=== PATIENT | female | born 1960 | race Caucasian/White ===

== ENCOUNTER 2018-05-08 00:25 | Outpatient (CLI) | payer BC, SELFPAY ==
--- NOTE | 2018-05-08 07:40 | DI.MAMMO_ITS ---
SYMPTOM/DIAGNOSIS: SCREENING, Z12.31 MAMMOGRAMS: Mammograms were interpreted according to the usual protocol including computer analysis with CAD system, tomosynthesis and C view imaging. Comparison with prior examinations. Breast density D. No masses or microcalcifications are seen. There is nothing to suggest malignancy. IMPRESSION: Negative mammogram. Routine screening is recommended. Category I. MQSA ASSESSMENT OF FINDINGS: Negative. Category 1. Patient will receive a letter notifying them of these results. BI-RADS category D. The breasts are extremely dense, which lowers the sensitivity of mammography.
== END 2018-05-08 00:45 ==
PROVIDERS: PCP Physician Assistant; Visit Provider Obstetrics & Gynecology
DX: Z12.31 Encounter for screening mammogram for malignant neoplasm of breast (principal)
CPT/HCPCS: 77063; 77067

== ENCOUNTER 2019-06-10 02:02 | Outpatient (CLI) | payer BC, SELFPAY ==
--- NOTE | 2019-06-10 08:40 | DI.MAMMO_ITS ---
EXAM: MAMMO SCREENING CLINICAL HISTORY: SCREENING, Z12.31 TECHNIQUE: Mammograms were interpreted according to the usual protocol including computer analysis w [employer] CAD system, tomosynthesis and C-view imaging. FINDINGS: The breasts are very dense with fairly symmetrical distribution of fibroglandular tissue. No dominan t mass or clumped microcalcification identified in either breast. Current examination is compared wi th previous examinations including May 2018 and there has been no gross interval change in appear ance in comparison with the previous studies. IMPRESSION: Routine screening examinations are suggested at yearly intervals due to the family history of breast carcinoma. Category 1. Breast density, category D. BI-RADS Cat 1 - Negative. Breast Density - Category D - Extremely dense.
== END 2019-06-10 02:22 ==
PROVIDERS: PCP Physician Assistant; Visit Provider Obstetrics & Gynecology
DX: Z12.31 Encounter for screening mammogram for malignant neoplasm of breast (principal); Z80.3 Family history of malignant neoplasm of breast
CPT/HCPCS: 77063; 77067

== ENCOUNTER 2020-06-13 00:34 | Outpatient (CLI) | payer BC, SELFPAY ==
--- NOTE | 2020-06-13 | DI.MAMMO_ITS ---
EXAM: MAMMO SCREENING CLINICAL HISTORY: SCREENING,Z12.39 TECHNIQUE: Mammograms were interpreted according to the usual protocol including computer analysis w [employer] CAD system, tomosynthesis and C-view imaging. COMPARISON: FINDINGS: The breasts are of very high density. No dominant mass or clumped microcalcification is identified i n either breast. The current examination is compared with previous examinations including June 06 and there has been no gross interval change in appearance in comparison with the prior studies. IMPRESSION: No specific evidence of malignancy at this time. Routine screening examinations are suggested at yea rly intervals in this age group according to the ACS ACR guidelines. BI-RADS Category 1 - Negative Breast Density - Category D - Extremely dense
== END 2020-06-13 00:54 ==
PROVIDERS: PCP Physician Assistant; Visit Provider Obstetrics & Gynecology
DX: Z12.31 Encounter for screening mammogram for malignant neoplasm of breast (principal)
CPT/HCPCS: 77063; 77067

== ENCOUNTER 2021-06-15 01:01 | Outpatient (CLI) | payer BC, SELFPAY ==
--- NOTE | 2021-06-15 09:50 | DI.MAMMO_ITS ---
Exam(s) MAMMO SCREENING EXAM: MAMMO SCREENING CLINICAL HISTORY: SCREENING FOR BREAST CANCER Z12.31. TECHNIQUE: Bilateral full field digital CC and MLO mammographic images were obtained with 3D tomosyn thesis and utilizing computer aided detection (CAD). COMPARISON: 2010 through 2019 FINDINGS: Masses/Architectural Distortion: None seen. Microcalcifications: No suspicious pleomorphic-type are seen. Skin Thickening/Nipple Retraction: None. IMPRESSION: 1. No significant interval change with no specific features of malignancy noted. 2. Unless there is more urgent need, annual screening mammography is recommended, as per [place] [employer] guidelines. BI-RADS Category 1-negative Breast Density - Category D - extremely dense Breast Density Category D: The mammogram demonstrates the patient's breast tissue is dense. Dense olamide ast tissue is very common and is not abnormal but dense breast tissue can make it harder to find canc er on a mammogram. Also, dense breast tissue may increase their breast cancer risk. This information about the result of the mammogram report was provided to the patient to raise their awareness. Use th is report when you speak with the patient about their risks for breast cancer, which includes their f amily history. At that time, you may recommend for more screening tests (Ultrasound or MRI) as they m ight be useful based on their risk. A negative radiographic report should not delay biopsy if a dominant or clinically suspicious mass is present. Up to ten percent of cancers are not identified on mammography. A negative report may reinforce clinical impression. Adenosis and dense breasts may obscure an underlying neoplasm. False positive reports average 6 to 10%.
== END 2021-06-15 01:21 ==
PROVIDERS: PCP Physician Assistant; Visit Provider Obstetrics & Gynecology
DX: Z12.31 Encounter for screening mammogram for malignant neoplasm of breast (principal)
CPT/HCPCS: 77063; 77067

== ENCOUNTER → 2022-06-21 02:03 | Outpatient (CLI) | payer BC, SELFPAY ==
--- NOTE | 2022-06-21 08:40 | DI.MAMMO_ITS ---
Exam(s) MAMMO SCREENING EXAM: MAMMO SCREENING CLINICAL HISTORY: SCREENING, Z12.31 TECHNIQUE: Mammograms were interpreted according to the usual protocol including computer analysis w [facility] CAD system, tomosynthesis and C-view imaging. COMPARISON: FINDINGS: The breasts are extremely dense. No dominant mass or clumped microcalcification is identified in eit her breast. The current examination is compared with previous examinations including June 2021 a nd there has been no gross interval change in appearance in comparison with the prior studies. IMPRESSION: No specific evidence of malignancy at this time. Routine screening examinations are suggested at yea rly intervals in this age group according to the ACS ACR guidelines. BI-RADS Category 1 - Negative Breast Density - Category D - Extremely dense
== END ==
PROVIDERS: PCP Physician Assistant; Visit Provider Obstetrics & Gynecology
DX: Z12.31 Encounter for screening mammogram for malignant neoplasm of breast (principal); R92.8 Other abnormal and inconclusive findings on diagnostic imaging of breast
CPT/HCPCS: 77063; 77067

== ENCOUNTER 2023-02-08 10:22 | Emergency (ER) | payer BC, SELFPAY ==
--- NOTE | 2023-02-08 10:15 | RT.EKG_ITS ---
APPROVED REPORT Exam: Resting ECG Reason for Exam: Dizziness Patient Location: E HR:80 bpm ECG Measurements Heart Rate 80 AXIS ME 137 P 79 QRSd 78 QRS 53 QT 367 T 40 QTc 424 Conclusion Sinus rhythm V-rate 80-[address] segement or T wave abnormalities to suggest occlusive ME
[2023-02-08 10:23] VITALS: BP 118/96; PULSE 83; RESP 20; TEMP 36.9; O2SAT 100
[2023-02-08 10:38] VITALS: RESP 16
--- NOTE | 2023-02-08 10:40 | ED.GENADUL_ITS ---
Discharge Plan Disposition Patient Disposition: Home Discharge Details Clinical Impression: Complaint of debility and malaise Primary Care Provider: Livia Felix V ED Provider: Yvette Mcdonald Home Meds and New Rx's Prescriptions: No Action No Known Home Meds Discharge Instructions Instructions: Fatigue (ED) Additional Instructions: Please follow up with your PCP; mention the ketones and protein in your urine. Referrals: Livia Felix V [Primary Care Provider] - Medical Decision Making 62yo previously healthy female presenting for three years of generalized weakness, malaise, and weight loss. Prior unrevealing workups per patient; recently switched PCP to [facility] [facility] in [place] and had bloodwork & MRI on Saturday (no MRI results yet per patient). Vital signs and physical exam reassuring. Ambulated into department. No focal neurological deficits. Given lengthy time course of symptoms and outpatient workup in progress, unlikely to be able to add much in the ED today or find overlying diagnosis, however will evaluate for acute causes of worsening fatigue/weakness/malaise as appears to be worse than baseline currently. EKG NSR, no indication of occlusive MD. Troponin negative; with three days of symptoms and no chest pain/SOB would not repeat or trend. CXR ordered and independently reviewed; agree with radiology read, no acute abnormality including no focal pneumonia. Labs ordered and reviewed; CBC, CMP, and TSH without significant abnormalities. No anemia, normal CR, no electrolyte abnormalities. UA not suggestive of infection. + ketones consistent with decreased PO as reported by patient, mild proteinuria for which she was advised to followup with PCP. On reassessment she remains well appearing with reassuring vital signs, no acute complaints. With reassuring work up as above, appropraite for PCP followup. Discharged home to continue close followup with PCP. Discharge instructions and return precautions were reviewed with patient who verbalized understanding. All questions were answered and she is in agreement with the plan. Lab Data Lab results reviewed: Yes I reviewed the patient's lab results. Lab results narrative: Laboratory Tests Range/Units 02/08/23 02/08/23 10:50 10:50 WBC (4.4-10.8) 10^3/uL 6.60 RBC (3.93-5.22) 10^6/uL 5.47 H Hgb (11.2-15.7) g/dL 16.2 H Hct (36.0-46.0) % 48.8 H MCV (80-95) fL 89 MCH (27.0-33.0) pg 29.6 MCHC (32.0-36.0) % 33.2 RDW (11.7-14.6) % 12.8 Plt Count (130-400) 10^3/uL 260 MPV (8.0-11.0) fL 9.6 Immature Gran % 0.3 Neutrophils % 66.6 Lymphocytes % 23.5 Monocytes % 7.7 Eosinophils % 0.8 Basophils % 1.1 Nucleated RBC % (0.0-0.3) % 0.0 Absolute Neutrophils (1.2-6.7) 10^3/uL 4.40 Absolute Lymphocytes (1.2-3.4) 10^3/uL 1.55 Absolute Monocytes (0.1-0.8) 10^3/uL 0.51 Absolute Eosinophils (0.0-0.7) 10^3/uL 0.05 Absolute Basophils (0.0-0.2) 10^3/uL 0.07 Sodium (136-145) mmol/L 144 Potassium (3.5-5.1) mmol/L 4.1 Chloride (98-107) mmol/L 105 Carbon Dioxide (21.0-32.0) mmol/L 29.2 Anion Gap (3-11) mmol/L 9.8 BUN (7-18) mg/dL 19 H Creatinine (0.55-1.02) mg/dL 1.0 Est GFR (CKD-EPI 2020) (mL/min/1.73m2) 63.30 Glucose (74-106) mg/dL 156 H Calcium (8.5-10.1) mg/dL 9.5 Total Bilirubin (0.2-1.0) mg/dL 1.0 AST (15-37) U/L 38 H ALT (14-59) U/L 28 Alkaline Phosphatase (46-116) U/L 102 Troponin I (<or=60) ng/L < 50 Total Protein (6.4-8.2) g/dL 7.3 Albumin (3.4-5.0) g/dL 3.9 TSH (0.36-3.74) uIU/mL 1.33 HPI General Mode of arrival: ambulatory . Date/Time Provider Initiated Documentation: 02/08/23 10:39 . Limitations to Documentation: no limitations . Information obtained by: patient and family . HPI Narrative: 62yo previously healthy female presenting for three years of generalized weakness, malaise, and weight loss. Symptoms were initially intermittent but are now constant. Pain is all over. no focal pain or weakness. No headache or vertigo. Lost 20lbs over three years. Has seen neurology for this at some point in the past. Has been seen in [place] without diagnosis or improvement in symptoms, recently established primary care with [facility] in [place] and had bloodwork and an MRI on Saturday. No results from MRI per patient; does report an elevated AlkPhos otherwise unremarkable labs per pt. Since Saturday has felt even more weak, otherwise no acute changes. Able to ambulate but gets tired easily. No fever, chills, rash, nausea, vomiting, abdominal pain, falls, numbness/tingling, chest pain, shortness of breath, syncope, presyncope, or other concerns. Related Data Home Medications Medication Instructions Recorded Confirmed Unknown [No Known Home Meds] 02/16/16 02/08/23 Allergies Allergy/AdvReac Type Severity Reaction Status Date / Time No Known Allergies Allergy Unverified 02/08/23 10:30 General Stated Complaint: GenMedical GUERDA: 3 PFSH All Active Problems (Updated 02/08/23 @ 12:52 by Yvette Mcdonald MD) Complaint of debility and malaise (Acute) Mucocele of lower lip (Acute) Social History Smoking/Tobacco Use Status: Never Smoking risk assessment performed?: Yes Drug use: Daily Substance use type: marijuana Details: uses for sleep Housing: house Do you feel safe at home: Yes Do you feel safe in your relationship?: Yes Course Vital Signs Vital signs: Vital Signs Temperature 36.9 C 02/08/23 10:23 Pulse 83 02/08/23 10:23 Respiratory Rate 20 02/08/23 10:23 Blood Pressure 118/96 H 02/08/23 10:23 Pulse Oximetry 100 02/08/23 10:23 Temperature 36.9 C 02/08/23 10:23 Temperature Source Skin 02/08/23 10:23 Pulse 83 02/08/23 10:23 Respiratory Rate 20 02/08/23 10:23 Blood Pressure 118/96 H 02/08/23 10:23 Blood Pressure Position Sitting 02/08/23 10:23 Pulse Oximetry 100 02/08/23 10:23 Oxygen Delivery Method Room Air 02/08/23 10:23 Oxygen Flow Rate 0 02/08/23 10:23 Pain Level 6 02/08/23 10:23
--- NOTE | 2023-02-08 10:45 | DI.RAD_ITS ---
Exam(s) XR CHEST 2V PA LATERAL EXAM: XR CHEST 2V PA LATERAL CLINICAL HISTORY: general malaise TECHNIQUE: 2D digital imaging was performed. COMPARISON: DX DEXA BONE DENSITY WITH RONALD from 09/01/2012 FINDINGS: HEART: Normal size. Aorta: Not dilated. PULMONARY VASCULATURE: Normal. LUNGS: Clear. PLEURAL SPACE: No pleural effusion or pneumothorax. BONE:Minimal upper and mid thoracic compression fractures. Hardware in the lumbar spine. IMPRESSION: No acute abnormality. DATA REPOSITORY: RADIATION DOSE DELIVERED:
[2023-02-08 11:10] LABS: Abs Immature Grans 0.02 10^3/uL (0.0-0.06); Absolute Basophil Count 0.07 10^3/uL (0.0-0.2); Absolute Eosinophil Count 0.05 10^3/uL (0.0-0.7); Absolute Lymphocyte Count 1.55 10^3/uL (1.2-3.4); Absolute Monocyte Count 0.51 10^3/uL (0.1-0.8); Basophils % 1.1; Eosinophils % 0.8; HCT 48.8 % (36.0-46.0); HGB 16.2 g/dL (11.2-15.7); Immature Grans % 0.3; Lymphocytes % 23.5; MCH 29.6 pg (27.0-33.0); MCHC 33.2 % (32.0-36.0); MCV 89 fL (80-95); MPV 9.6 fL (8.0-11.0); Monocytes % 7.7; Neutrophils % 66.6; Platelet Count 260 10^3/uL (130-400); RBC 5.47 10^6/uL (3.93-5.22); RDW 12.8 % (11.7-14.6)
[2023-02-08 11:37] LABS: ALT 28 U/L (14-59); AST 38 U/L (15-37); Albumin 3.9 g/dL (3.4-5.0); Alkaline Phosphatase 102 U/L (46-116); Anion Gap 9.8 mmol/L (3-11); BUN 19 mg/dL (7-18); CO2 29.2 mmol/L (21.0-32.0); Calcium 9.5 mg/dL (8.5-10.1); Chloride 105 mmol/L (98-107); Glucose 156 mg/dL (74-106); Potassium 4.1 mmol/L (3.5-5.1); Sodium 144 mmol/L (136-145); TSH (W/Ref FT4) 1.33 uIU/mL (0.36-3.74); Total Protein 7.3 g/dL (6.4-8.2); Troponin I < 50 ng/L (<or=60)
[2023-02-08 12:40] LABS: Bilirubin Negative (Negative); Blood Negative (Negative); Clarity Clear (Clear); Glucose Negative (Negative); Ketones 15 mg/dL (Negative); Leukocyte Esterase Small (Negative); Nitrite Negative (Negative); Urobilinogen 0.2 mg/dL (Up to 0.2); pH 6.5 (5-8)
[2023-02-08 13:02] VITALS: BP 126/80; PULSE 75; RESP 20; TEMP 36.8; O2SAT 99
== END 2023-02-08 13:06 | disposition home or self-care (01) ==
PROVIDERS: Emergency Provider Student in an Organized Health Care Education/Training Program; PCP Physician Assistant
DX: R53.1 Weakness (principal); R53.81 Other malaise; R63.4 Abnormal weight loss
CPT/HCPCS: 80053; 93005; 99284; 71046; 81003; 84443; 84484; 85025; 93010; 99283

== ENCOUNTER 2023-04-10 09:12 | Emergency (ER) | payer BC, SELFPAY ==
[2023-04-10 09:16] VITALS: BP 124/89; PULSE 74; RESP 20; TEMP 37; O2SAT 100
--- NOTE | 2023-04-10 09:30 | RT.EKG_ITS ---
APPROVED REPORT Exam: Resting ECG Reason for Exam: Dizziness Patient Location: E HR:62 bpm ECG Measurements Heart Rate 62 AXIS DE 155 P 65 QRSd 76 QRS 26 QT 421 T 30 QTc 427 Conclusion Sinus rhythm...normal P axis, V-rate 60- 99
[2023-04-10] MEDS: Ondansetron 4 MG/2 ML VIAL IVP (09:58)
[2023-04-10] MEDS: Lactated Ringers 1,000 ML 1000 ML IV (09:58)
--- NOTE | 2023-04-10 10:00 | ED.GENADUL_ITS ---
Discharge Plan Disposition Patient Disposition: Home Condition: Stable Discharge Details Clinical Impression: Nausea, Acute hypokalemia, Acute diarrhea Primary Care Provider: Livia Felix V ED Provider: Kevin Brown Home Meds and New Rx's Prescriptions: New ondansetron 4 mg tablet,disintegrating 4 mg PO Q8H PRNQty: 10 0RF Discontinued sertraline 25 mg tablet 25 mg PO DAILY Patient Comments: Has not taken since saturday Discharge Instructions Instructions: Hypokalemia (ED), Acute Nausea and Vomiting (ED), Acute Diarrhea (ED) Additional Instructions: Please drink plenty of fluids in order to stay hydrated. I recommend small frequent sips. Take nausea medicine as prescribed. Please contact your primary care physician to arrange follow-up. Return to the ER immediately for any worsening or new concerning symptoms. Referrals: Livia Felix V [Primary Care Provider] - Discharge Data Discharge Date/Time-TO BE ENTERED AT DEPARTURE: 04/10/23 11:55 Medical Decision Making 10:00??62-year-old female with history depression, recently started on Zoloft 5 days ago, developed nausea vomiting and lightheadedness 4 days ago. Patient is concerned for potential adverse reaction to Zoloft and notes she subsequently stopped taking Zoloft. Patient is hemodynamically stable. Patient is hypovolemic. I will give IV fluid bolus. Zofran for nausea. Consider electrolyte abnormalities and will check labs. Patient notes restlessness. I will give Ativan 0.5 mg IV. --Labs reviewed and mild hypokalemia noted. Will give potassium chloride 20 mill equivalents. 1145 --patient reassessed and feeling much better. Plan for discharge with outpatient follow-up with PCP. Disposition decision was made weighing the risks and benefits of hospitalization versus outpatient treatment, the risk for further decompensation, and the patient's wishes. The patient was stable and requested discharge. Prior to discharge, my usual and customary return precautions were reviewed with the patient - this included follow-up instructions and reason to return to the emergency department if condition worsens, does not improve as expected, or other new concerns arise. Lab Data Lab results reviewed: Yes I reviewed the patient's lab results. Labs: Laboratory Tests Range/Units 04/10/23 04/10/23 04/10/23 09:58 09:58 09:58 WBC (4.4-10.8) 10^3/uL 6.50 RBC (3.93-5.22) 10^6/uL 5.18 Hgb (11.2-15.7) g/dL 15.4 Hct (36.0-46.0) % 45.6 MCV (80-95) fL 88 MCH (27.0-33.0) pg 29.7 MCHC (32.0-36.0) % 33.8 RDW (11.7-14.6) % 12.3 Plt Count (130-400) 10^3/uL 216 MPV (8.0-11.0) fL 9.6 Immature Gran % 0.3 Neutrophils % 70.3 Lymphocytes % 18.6 Monocytes % 9.5 Eosinophils % 0.5 Basophils % 0.8 Nucleated RBC % (0.0-0.3) % 0.0 Absolute Neutrophils (1.2-6.7) 10^3/uL 4.57 Absolute Lymphocytes (1.2-3.4) 10^3/uL 1.21 Absolute Monocytes (0.1-0.8) 10^3/uL 0.62 Absolute Eosinophils (0.0-0.7) 10^3/uL 0.03 Absolute Basophils (0.0-0.2) 10^3/uL 0.05 Sodium (136-145) mmol/L 141 Potassium (3.5-5.1) mmol/L 3.3 L Chloride (98-107) mmol/L 103 Carbon Dioxide (21.0-32.0) mmol/L 28.4 Anion Gap (3-11) mmol/L 9.6 BUN (7-18) mg/dL 16 Creatinine (0.55-1.02) mg/dL 1.1 H Est GFR (CKD-EPI 2020) (mL/min/1.73m2) 56.46 Glucose (74-106) mg/dL 107 H Calcium (8.5-10.1) mg/dL 9.2 Magnesium (1.8-2.4) mg/dL 2.2 Total Bilirubin (0.2-1.0) mg/dL 0.9 AST (15-37) U/L 27 ALT (14-59) U/L 21.0 Alkaline Phosphatase (46-116) U/L 104 Total Protein (6.4-8.2) g/dL 6.6 Albumin (3.4-5.0) g/dL 3.8 TSH (0.36-3.74) uIU/mL 0.93 Cancelled HPI General Mode of arrival: ambulatory . Date/Time Provider Initiated Documentation: 04/10/23 09:25 . Limitations to Documentation: no limitations . Information obtained by: patient . HPI Narrative: 62-year-old female with history of depression, recently started on Zoloft 3 days ago, developed severe nausea, vomiting and lightheadedness on Saturday which has persisted. Patient notes not eating well. She has no associated abdominal pain. Patient attributes her symptoms to new medication. She notes she has had adverse reactions to prior medications. Related Data Home Medications Medication Instructions Recorded Confirmed ondansetron 4 mg disintegrating 4 mg PO Q8H PRN #10 tabs 04/10/23 tablet Previous Rx's Medication Instructions Recorded ondansetron 4 mg disintegrating 4 mg PO Q8H PRN #10 tabs 04/10/23 tablet Allergies Allergy/AdvReac Type Severity Reaction Status Date / Time sertraline Allergy Intermediate Other (See Unverified 04/10/23 09:39 Comment) General Stated Complaint: Nausea/Vomit/Diar GUERDA: 3 Review of Systems All systems reviewed & are unremarkable except as noted in HPI and below Constitutional Constitutional: Denies fever(s) Psychiatric Psychiatric: Reports depression Comments: no SI PFSH All Active Problems (Updated 04/10/23 @ 11:49 by Kevin Brown MD) Nausea (Acute) Acute hypokalemia (Acute) Acute diarrhea (Acute) Mucocele of lower lip (Acute) Social History Smoking/Tobacco Use Status: Never Smoking risk assessment performed?: Yes Alcohol Intake: never Drug use: Daily Substance use type: marijuana Details: uses for sleep Housing: house Do you feel safe at home: Yes Do you feel safe in your relationship?: Yes Exam Const General: cooperative HENMT Head: normocephalic Mouth: mucous membranes dry Eyes Conjunctivae: normal conjunctivae Sclera: normal sclerae Neck Neck: trachea midline and supple Thyroid: thyroid normal Resp Auscultation: clear to auscultation bilaterally, no rales, no rhonchi and no wheezes Cardio Rate: regular rate and not tachycardic Rhythm: regular rhythm GI Palpation: soft, not firm, no guarding, no masses, not rigid and nontender Skin General skin exam: no rashes or lesions noted and turgor decreased Neuro General: patient alert, patient awake and tone normal Extrem General: no edema Psych Appearance: grossly normal Mental Status: mental status grossly normal Speech and Movement: speech and movement normal Course Vital Signs Vital signs: Vital Signs Temperature 37.0 C 04/10/23 09:16 Pulse 74 04/10/23 09:16 Respiratory Rate 20 04/10/23 09:16 Blood Pressure 124/89 04/10/23 09:16 Pulse Oximetry 100 04/10/23 09:16 Temperature 37.0 C 04/10/23 09:16 Temperature Source Tympanic 04/10/23 09:16 Pulse 74 04/10/23 09:16 Respiratory Rate 20 04/10/23 09:16 Respiratory Effort Normal, Non-Labored 04/10/23 09:22 Blood Pressure 124/89 04/10/23 09:16 Pulse Oximetry 100 04/10/23 09:16 Oxygen Delivery Method Room Air 04/10/23 09:16 Oxygen Flow Rate 0 04/10/23 09:16
[2023-04-10 10:05] LABS: Abs Immature Grans 0.02 10^3/uL (0.0-0.06); Absolute Basophil Count 0.05 10^3/uL (0.0-0.2); Absolute Eosinophil Count 0.03 10^3/uL (0.0-0.7); Absolute Lymphocyte Count 1.21 10^3/uL (1.2-3.4); Absolute Monocyte Count 0.62 10^3/uL (0.1-0.8); Absolute Neutrophil Count 4.57 10^3/uL (1.2-6.7); Basophils % 0.8; Eosinophils % 0.5; HCT 45.6 % (36.0-46.0); HGB 15.4 g/dL (11.2-15.7); Immature Grans % 0.3; Lymphocytes % 18.6; MCH 29.7 pg (27.0-33.0); MCHC 33.8 % (32.0-36.0); MCV 88 fL (80-95); MPV 9.6 fL (8.0-11.0); Monocytes % 9.5; Neutrophils % 70.3; Platelet Count 216 10^3/uL (130-400); RBC 5.18 10^6/uL (3.93-5.22); RDW 12.3 % (11.7-14.6)
[2023-04-10] MEDS: LORazepam 2 MG/ML VIAL (10:08)
[2023-04-10 10:29] LABS: AST 27 U/L (15-37); Albumin 3.8 g/dL (3.4-5.0); Alkaline Phosphatase 104 U/L (46-116); Anion Gap 9.6 mmol/L (3-11); BUN 16 mg/dL (7-18); Bilirubin, Total 0.9 mg/dL (0.2-1.0); CO2 28.4 mmol/L (21.0-32.0); CREATININE 1.1 mg/dL (0.55-1.02); Calcium 9.2 mg/dL (8.5-10.1); Chloride 103 mmol/L (98-107); Estimated GFR 56.46 (mL/min/1.73m2); Glucose 107 mg/dL (74-106); Magnesium 2.2 mg/dL (1.8-2.4); Potassium 3.3 mmol/L (3.5-5.1); Sodium 141 mmol/L (136-145); TSH (W/Ref FT4) 0.93 uIU/mL (0.36-3.74); Total Protein 6.6 g/dL (6.4-8.2)
[2023-04-10] MEDS: Potassium Chloride 20 MEQ TABCR PO (11:19)
[2023-04-10 11:54] VITALS: BP 110/72; PULSE 74; RESP 16; O2SAT 99
== END 2023-04-10 11:55 | disposition home or self-care (01) ==
PROVIDERS: Emergency Provider Student in an Organized Health Care Education/Training Program; PCP Physician Assistant
DX: R11.0 Nausea (principal); R19.7 Diarrhea, unspecified; R42 Dizziness and giddiness; E87.6 Hypokalemia; E86.1 Hypovolemia; F32.A Depression, unspecified
CPT/HCPCS: 36415; 80053; 93005; 96361; 96374; 99284; 83735; 84443; 85025; 93010; J2060; J2405

== ENCOUNTER → 2023-06-24 02:25 | Outpatient (CLI) | payer BC, SELFPAY ==
--- NOTE | 2023-06-24 08:13 | DI.MAMMO_ITS ---
Exam(s) MAMMO SCREENING EXAM: MAMMO SCREENING CLINICAL HISTORY: SCREENING, Z12.31. TECHNIQUE: Bilateral full field digital CC and MLO mammographic images were obtained with 3D tomosyn thesis and utilizing computer aided detection (CAD). COMPARISON: 2013 through 2021 FINDINGS: Masses/Architectural Distortion: None seen. Microcalcifications: No suspicious pleomorphic-type are seen. Skin Thickening/Nipple Retraction: None. IMPRESSION: 1. No significant interval change with no specific features of malignancy noted. 2. Unless there is more urgent need, annual screening mammography is recommended, as per [place] [employer] guidelines. BI-RADS Category 1-negative Breast Density - Category D - extremely dense Breast Density Category D: The mammogram demonstrates the patient's breast tissue is dense. Dense olamide ast tissue is very common and is not abnormal but dense breast tissue can make it harder to find canc er on a mammogram. Also, dense breast tissue may increase their breast cancer risk. This information about the result of the mammogram report was provided to the patient to raise their awareness. Use th is report when you speak with the patient about their risks for breast cancer, which includes their f amily history. At that time, you may recommend for more screening tests (Ultrasound or MRI) as they m ight be useful based on their risk. A negative radiographic report should not delay biopsy if a dominant or clinically suspicious mass is present. Up to ten percent of cancers are not identified on mammography. A negative report may reinforce clinical impression. Adenosis and dense breasts may obscure an underlying neoplasm. False positive reports average 6 to 10%.
== END ==
PROVIDERS: PCP Physician Assistant; Visit Provider Obstetrics & Gynecology
DX: Z12.31 Encounter for screening mammogram for malignant neoplasm of breast (principal); R92.343 Mammographic extreme density, bilateral breasts
CPT/HCPCS: 77063; 77067

== ENCOUNTER 2023-11-13 17:32 | Emergency (ER) | payer BC, SELFPAY ==
[2023-11-13 17:35] VITALS: BP 158/102; PULSE 70; RESP 12; TEMP 36; O2SAT 99
[2023-11-13 17:44] VITALS: RESP 15
--- NOTE | 2023-11-13 18:08 | ED.GENADUL_ITS ---
Discharge Plan Disposition Patient Disposition: Home Condition: Stable Discharge Details Clinical Impression: Migraine syndrome Primary Care Provider: Livia Felix V ED Provider: Cirilo Head Home Meds and New Rx's Prescriptions: New sumatriptan succinate 25 mg tablet See Rx Instructions .ROUTE .COMPLEX Qty: 20 0RF Rx Instructions: take 1 tab at onset of headache; if no relief may repeat 1 tab after at least 2 hrs; max = 4 tabs/24 hr ketorolac 10 mg tablet 10 mg PO QID PRNQty: 20 0RF Rx Instructions: maximum total duration of 5 days from all oral, intranasal, or parenteral formulations metoclopramide HCl 5 mg tablet 5 mg PO QID Qty: 20 0RF Rx Instructions: administer 30 minutes before meals Continued amitriptyline 10 mg tablet 10 mg PO DAILY Patient Comments: TAKE 1 TABLET BY MOUTH TWICE DAILY Discharge Instructions Instructions: Metoclopramide (By mouth), Ketorolac (By mouth), Sumatriptan (By mouth), Migraine Headache (ED) Additional Instructions: You were seen in the emergency department for your likely migraine headache, your stroke workup was negative, the labs all returned with no likelihood of infectious etiology. You had a mild increase in your lipase which is a pancreas enzyme. This may normalize with good hydration. Unfortunately I have not reached a definitive diagnosis for you but your condition did respond to migraine medicines so it is possible you have some sort of migraine syndrome going on. If you want to treat this at home I have sent prescriptions for ketorolac a powerful anti-inflammatory as well as metoclopramide and an antinausea medicine that helps with headache as well as sumatriptan a daily migraine prevention medicine that also can work at the onset of headache too. At the onset of a headache please try to choke 2 glasses of water, take 2 extra strength Tylenol, 1 ketorolac, 125 mg tablet of Benadryl, one 5 mg prescription metoclopramide as well as 1 tablet of sumatriptan. Please return for any severe increase in symptoms especially with slurred speech, hemiparesis, unilateral weakness, visual changes, chest pain, syncope, numbness tingling Referrals: [facility] [Provider Group] Livia Felix V [Primary Care Provider] - HPI General Date/Time Provider Initiated Documentation: 11/13/23 17:54 . HPI Narrative: 63 year-old female presents to ED today by POV/ambulating with a chief complaint of severe headache since last night, worse today- with history of severe migraines that resolved after menopause until last night. Quality described as pounding headache, started behind her R ear, now mostly linear across her crown, no radiation to fever, shortness of breath, cough, visual changes, vomiting, vertigo- endorses nausea, states she has chronic balance problems, chronic diffuse weakness and weight-loss. Sees [facility] Neuro for this- last seen [address]/MRI/LPs with no findings, has had tick panel testing. Severity is described as severe. Palliating factors include nothing specific. Provoking factors include nothing specific. Events leading up to the incident/Associated Symptoms: Patient and family are frustrated with lack of diagnosis. Patient not anticoagulated. Related Data Home Medications Medication Instructions Recorded Confirmed amitriptyline 10 mg tablet 10 mg PO DAILY 11/13/23 11/13/23 ketorolac 10 mg tablet 10 mg PO QID PRN #20 tabs 11/13/23 metoclopramide HCl 5 mg tablet 5 mg PO QID migraine #20 tabs 11/13/23 sumatriptan succinate 25 mg tablet See Rx Instructions PO .COMPLEX 11/13/23 #20 tabs Previous Rx's Medication Instructions Recorded ketorolac 10 mg tablet 10 mg PO QID PRN #20 tabs 11/13/23 metoclopramide HCl 5 mg tablet 5 mg PO QID migraine #20 tabs 11/13/23 sumatriptan succinate 25 mg tablet See Rx Instructions PO .COMPLEX 11/13/23 #20 tabs Allergies Allergy/AdvReac Type Severity Reaction Status Date / Time sertraline Allergy Intermediate Other (See Unverified 11/13/23 17:50 Comment) General Stated Complaint: GenMedical GUERDA: 3 Review of Systems All systems reviewed & are unremarkable except as noted in HPI and below Exam Narrative Exam Narrative: GENERAL APPEARANCE: Malnourished & frail, non-toxic, awake and alert, atraumatic, no acute distress. SKIN: Warm, pink, dry, intact, without rashes/lesions/ulcerations. HEAD: Normocephalic, atraumatic, normal hair distribution for gender/age. EYES: Pupils PERRLA, EOMs intact without nystagmus, normal conjunctiva, no exud ates on lids/lashes. ENT: Nares patent, no circumoral cyanosis, no facial swelling NECK: Supple, trachea midline, painless cervical ROM. LUNGS/CHEST: Lungs CTA bilaterally- no rhonchi/rales/wheezes diffusely, non- labored respirations, normal A/P diameter, symmetrical expansion, no chest wall deformity HEART (CV/PV): Regular rate and rhythm without murmur, no peripheral edema, no JVD. ABDOMEN: Soft, non-distended, no guarding, no tenderness. MSK: Normal ROM, no swelling/deformity to bilateral UEs or LEs, moving all extremities without weakness, no cyanosis, spine midline without tenderness, no rmal curvature. NEURO: Mental Status AAOx4 - alert to person, place, time, events No facial droop, no forehead involvement, no dysmetria with FNF, heel-[place] Motor: No focal weakness - strength 4+/5 in bilateral UEs and LEs, proximal and distal, symmetric. Sensory: sensation intact to light touch globally. Gait normal NIH: 0 PSYCH: euthymic, cooperative, pleasant, appropriate speech Course Vital Signs Vital signs: Vital Signs Temperature 36.0 C L 11/13/23 17:35 Pulse 70 11/13/23 17:35 Respiratory Rate 12 11/13/23 17:35 Blood Pressure 158/102 H 11/13/23 17:35 Pulse Oximetry 99 11/13/23 17:35 Temperature 36.0 C L 11/13/23 17:35 Temperature Source Temporal Artery Scan 11/13/23 17:35 Pulse 70 11/13/23 17:35 Respiratory Rate 15 11/13/23 17:44 Respiratory Effort Normal, Non-Labored 11/13/23 17:44 Respiratory Depth Normal 11/13/23 17:44 Respiratory Pattern Normal 11/13/23 17:44 Blood Pressure 158/102 H 11/13/23 17:35 Blood Pressure Position Sitting 11/13/23 17:35 Pulse Oximetry 99 11/13/23 17:35 Oxygen Delivery Method Room Air 11/13/23 17:35 Oxygen Flow Rate 0 11/13/23 17:35 Pain Level 8 11/13/23 17:35 Medical Decision Making This dictation utilizes [id number] dictation software and may contain unedited grammatical errors. 63 y/o F presents to ED today with a chief complaint of generalized weakness, severe headache onset last night, nausea. Patient sees [facility] Neuro with complicated course- many CTs/MRIs/LPs with no results- most recent 3 weeks ago. States has not had migraines in years despite severe migraine history pre- menopause. Patient denies fever, denies neck stiffness, denies visual changes, denies vomiting. Patient has not had diagnosis of complex migraine. Patients' medical history: [ ]. Family and social history: noncontributory. Pertinent exam findings / vital signs include frail, cachexic, no meningeal signs, no dysmetria. Benign cardiopulmonary exam, benign abdomen, nontoxic vitals. Differential / pathologies of concern include Migraine Syndrome, SAH, Unlikely Meningismus, Unlikely Cord Syndrome, No Facial Palsy. Diagnostic studies of: CBC, CMP, CRP/ESR, lactate, lipase, magnesium, procalcitonin, TSH, ammonia, CTA of the head and neck -CBC benign -CMP benign -CRP/ESR negative -Lactate wnl -Lipase shows mild elev, patient does not drink, no tenderness on exam -magnesium wnl -Procal negative -TSH wnl -Ammonia neg -CTA head and neck without acute pathology. Interventions of: -1 L IV normal saline, 1 g IV Tylenol, 25 mg IV Benadryl, 1.25 mg IV droperidol, 125 mg Solu-Medrol, 25 mg p.o. sumatriptan. ED Course/Assessment/Plan: 63-year-old female with complex neurological history and extensive workups as recently as 3 weeks ago at [facility] neurology in [facility], presents with severe headache onset last night ongoing today, has a history of severe migraine syndromes premenopausal. Has been migraine free for lengthy amount of time. The patient responded well to migraine cocktail with complete relief of headache, states she has restless legs, I states that there is no likely any stroke or other pathology going on based on her CTAs, she had recent LPs and I do not think that she needs any new studies, has had negative tick panels in the past, there is no infectious etiology on exam, no evidence for metabolic encephalopathy on laboratory workup. The patient is not a drinker. I counseled her on prescription migraine medicines and early intervention at home with any migraine for abortive therapy and to follow-up with her regular neurologist. Findings not consistent with CVA/TIA, SAH, meningismus, tickborne illness, metabolic encephalopathy. Disposition of migraine syndrome. Patient verbalized understanding of the plan and return to ED criteria and engaged in shared decision making. Medical Records Medical records reviewed: Yes I reviewed the patient's medical records. Imaging Data Radiologic Study: Attestation: I personally reviewed and interpreted this imaging study as follows: Imaging: CT Scan Radiologist's impression: Exam: CTA Head With Contrast, Arteriography Exam date and time: 11/13/2023 7:39 PM Age: 63 years old Clinical indication: Other: Headache, chronic gait abnormality TECHNIQUE: Imaging protocol: Computed tomographic angiography of the head with contrast. Exam focused on the arteries. 3D rendering (Not supervised by radiologist): MIP and/or 3D reconstructed images were created by the technologist. Contrast material: OMNIPAQUE; Contrast volume: 85 ml; Contrast route: INTRAVENOUS (IV); COMPARISON: No relevant prior studies available. FINDINGS: ANTERIOR CIRCULATION: Right internal carotid artery: Intracranial segment is patent with no significant stenosis. No aneurysm. Right middle cerebral artery: No occlusion or significant stenosis. No aneurysm. Right anterior cerebral artery: No occlusion or significant stenosis. No aneurysm. Left internal carotid artery: Intracranial segment is patent with no significant stenosis. No aneurysm. Left middle cerebral artery: No occlusion or significant stenosis. No aneurysm. Left anterior cerebral artery: No occlusion or significant stenosis. No aneurysm. POSTERIOR CIRCULATION: Right vertebral artery: No occlusion or significant stenosis. No aneurysm. Left vertebral artery: No occlusion or significant stenosis. No aneurysm. Basilar artery: No occlusion or significant stenosis. No aneurysm. Right posterior cerebral artery: No occlusion or significant stenosis. No aneurysm. Left posterior cerebral artery: No occlusion or significant stenosis. No aneurysm. Brain: No definite mass, mass effect, or midline shift. Cerebral ventricles: No ventriculomegaly. Bones/joints: Unremarkable. No acute fracture. Soft tissues: Unremarkable. IMPRESSION: No large vessel stenosis or occlusion. PROCEDURE INFORMATION: Exam: CTA Neck With Contrast Exam date and time: 11/13/2023 7:39 PM Age: 63 years old Clinical indication: Other: Headache, chronic gait abnormality TECHNIQUE: Imaging protocol: Computed tomographic angiography of the neck with contrast. Exam focused on the cervical segments of the vasculature. 3D rendering (Not supervised by radiologist): MIP and/or 3D reconstructed images were created by the technologist. Contrast material: OMNIPAQUE; Contrast volume: 85 ml; Contrast route: INTRAVENOUS (IV); COMPARISON: CR XR CHEST 2V PA LATERAL 02/08/2023 11:53 AM FINDINGS: Right common carotid artery: No stenosis. No dissection or occlusion. Right internal carotid artery: No stenosis of the extracranial segment. No dissection or occlusion. Right external carotid artery: No occlusion or stenosis of the origin. Left common carotid artery: No stenosis. No dissection or occlusion. Left internal carotid artery: No stenosis of the extracranial segment. No dissection or occlusion. Left external carotid artery: No occlusion or stenosis of the origin. Right vertebral artery: No stenosis. No dissection or occlusion. Left vertebral artery: No stenosis. No dissection or occlusion. Soft tissues: Normal. No significant soft tissue swelling. Bones/joints: No acute fracture. IMPRESSION: No stenosis or occlusion. REFERENCES: NASCET CRITERIA. The degree of stenosis in the cervical segment of the internal carotid artery is based on NASCET criteria. Normal is no stenosis. Mild is less than 50% stenosis. Moderate is 50-69% stenosis. Severe is 70% to 99% stenosis. Total occlusion is no detectable patent lumen. Dictated and Authenticated by: Malcom Pradhan MD. Ordering:GLADYS Kerr MD Lab Data Lab results reviewed: Yes I reviewed the patient's lab results. Labs: Laboratory Tests Range/Units 11/13/23 18:00 WBC (4.4-10.8) 10^3/uL 6.11 RBC (3.93-5.22) 10^6/uL 5.08 Hgb (11.2-15.7) g/dL 15.2 Hct (36.0-46.0) % 45.7 MCV (80-95) fL 90 MCH (27.0-33.0) pg 29.9 MCHC (32.0-36.0) % 33.3 RDW (11.7-14.6) % 13.0 Plt Count (130-400) 10^3/uL 206 MPV (8.0-11.0) fL 9.7 Immature Gran % 0.2 Neutrophils % 60.7 Lymphocytes % 28.5 Monocytes % 8.0 Eosinophils % 1.5 Basophils % 1.1 Nucleated RBC % (0.0-0.3) % 0.0 Absolute Neutrophils (1.2-6.7) 10^3/uL 3.71 Absolute Lymphocytes (1.2-3.4) 10^3/uL 1.74 Absolute Monocytes (0.1-0.8) 10^3/uL 0.49 Absolute Eosinophils (0.0-0.7) 10^3/uL 0.09 Absolute Basophils (0.0-0.2) 10^3/uL 0.07 ESR (0-30) mm/hr 2 VBG Lactate (0.6-1.4) mmol/L 1.4 Sodium (136-145) mmol/L 143 Potassium (3.5-5.1) mmol/L 3.6 Chloride (98-107) mmol/L 106 Carbon Dioxide (21.0-32.0) mmol/L 28.0 Anion Gap (3-11) mmol/L 9.0 BUN (7-18) mg/dL 14 Creatinine (0.55-1.02) mg/dL 0.8 Est GFR (CKD-EPI 2020) (mL/min/1.73m2) 82.23 Glucose (74-106) mg/dL 95 Calcium (8.5-10.1) mg/dL 8.5 Magnesium (1.8-2.4) mg/dL 2.3 Total Bilirubin (0.2-1.0) mg/dL 0.7 AST (15-37) U/L 25 ALT (14-59) U/L 24 Alkaline Phosphatase (46-116) U/L 120 H Ammonia (11-32) umol/L < 10 L C-Reactive Protein (<or=0.5) mg/dL < 0.50 Total Protein (6.4-8.2) g/dL 6.7 Albumin (3.4-5.0) g/dL 3.9 Lipase (16-77) U/L 107 H Procalcitonin ng/mL < 0.1 TSH (0.36-3.74) uIU/mL 3.12 Ethyl Alcohol (<10) mg/dL < 3.0 Quality:SDOH Health Related Social Needs: No Data to Display PFSH All Active Problems (Updated 11/13/23 @ 20:59 by ADRIANE Soto) Migraine syndrome (Acute) Mucocele of lower lip (Acute) Social History Smoking/Tobacco Use Status: Never Smoking risk assessment performed?: Yes Alcohol Intake: never Drug use: Daily Substance use type: marijuana Details: uses for sleep Housing: house Do you feel safe at home: Yes Do you feel safe in your relationship?: Yes
--- NOTE | 2023-11-13 18:15 | DI.CT_ITS ---
Exam(s) CT BRAIN NECK CTA EXAM: CT BRAIN NECK CTA CLINICAL HISTORY: headache, chronic gait abnormality. TECHNIQUE: Imaging Protocol: Axial CT angiography was performed with multi-slice acquisition and mu lti-planar and/or 3D reconstructions. CONTRAST MATERIAL: Intravenous: Omnipaque 350 contrast volume:85 mL COMPARISON: No exams were available for comparison FINDINGS: The examination is limited due to patient motion artifact. CT Head W/O and W: Ventricles and Extra axial spaces: Normal in size and morphology for the patient's age. Hemorrhage: None. Cerebral parenchyma: No evidence of an acute territorial infarct. No mass effect is identified. Midline shift: None. Brainstem/Cerebellum: Normal. Calvarium: Normal. Visualized Paranasal sinuses/Mastoids: Clear. Soft Tissues: Unremarkable. Enhancement: Unremarkable. CTA Neck W: Common Carotid: Right: No dissection, occlusion or significant stenosis. Left: No dissection, occlusion or significant stenosis. External Carotid: Right: No occlusion or significant stenosis. Left: No occlusion or significant stenosis. Internal Carotid: Right: No dissection, occlusion or significant stenosis. Left: No dissection, occlusion or significant stenosis. Vertebral Artery: Right: No dissection, occlusion or significant stenosis. Left: No dissection, occlusion or significant stenosis. Lung Apices: Normal. Bones: Within normal limits for the patient's age. Soft Tissues: Normal. Thyroid gland: Unremarkable. CTA Brain W: Internal Carotid Arteries: Normal. Anterior Cerebral Arteries: Right: No aneurysm, occlusion or significant stenosis. Left: No aneurysm, occlusion or significant stenosis. Middle Cerebral Arteries: Right: No aneurysm, occlusion or significant stenosis. Left: No aneurysm, occlusion or significant stenosis. Posterior Cerebral Arteries: Right: No aneurysm, occlusion or significant stenosis. Left: No aneurysm, occlusion or significant stenosis. Vertebral Arteries: Right: No aneurysm, occlusion or significant stenosis. Left: No aneurysm, occlusion or significant stenosis. Basilar Artery: No aneurysm, occlusion or significant stenosis. IMPRESSION: 1. No large vessel occlusion or significant stenosis on the CT angiography of the head. 2. No acute intracranial process. 3. No occlusion or significant stenosis on the CT angiography of the neck. RADIATION DOSE DELIVERED: Total DLP DATA REPOSITORY: All CT scans at this facility are submitted to the National Radiology Data Registry (NRDR) Dose Index Registry (DIR) with the [employer] (ACR). RADIATION OPTIMIZATION: All CT scans at this facility use at least one of these dose optimization te chniques: automated exposure control; mA and/or kV adjustment per patient size (includes targeted exa ms where dose is matched to clinical indication); or iterative reconstruction.
[2023-11-13 18:41] LABS: Lactate 1.4 mmol/L (0.6-1.4)
[2023-11-13 18:46] LABS: Abs Immature Grans 0.01 10^3/uL (0.0-0.06); Absolute Basophil Count 0.07 10^3/uL (0.0-0.2); Absolute Eosinophil Count 0.09 10^3/uL (0.0-0.7); Absolute Lymphocyte Count 1.74 10^3/uL (1.2-3.4); Absolute Monocyte Count 0.49 10^3/uL (0.1-0.8); Absolute Neutrophil Count 3.71 10^3/uL (1.2-6.7); Basophils % 1.1; Eosinophils % 1.5; HCT 45.7 % (36.0-46.0); HGB 15.2 g/dL (11.2-15.7); Immature Grans % 0.2; Lymphocytes % 28.5; MCH 29.9 pg (27.0-33.0); MCHC 33.3 % (32.0-36.0); MCV 90 fL (80-95); MPV 9.7 fL (8.0-11.0); Neutrophils % 60.7; Platelet Count 206 10^3/uL (130-400); RBC 5.08 10^6/uL (3.93-5.22); RDW-SD 43.6 fL; WBC 6.11 10^3/uL (4.4-10.8)
[2023-11-13 18:48] LABS: ESR 2 mm/hr (0-30)
[2023-11-13] MEDS: methylPREDNISolone SUCC 125 MG VIAL IVP (18:50)
[2023-11-13] MEDS: diphenhydrAMINE 50 MG/ML VIAL 25 MG IVP (18:50)
[2023-11-13] MEDS: Droperidol 5 MG/2 ML VIAL 1.25 MG IVP (18:50)
[2023-11-13] MEDS: SUMAtriptan 25 MG TAB PO (18:58)
[2023-11-13 19:00] LABS: ALT 24 U/L (14-59); AST 25 U/L (15-37); Albumin 3.9 g/dL (3.4-5.0); Alkaline Phosphatase 120 U/L (46-116); BUN 14 mg/dL (7-18); Bilirubin, Total 0.7 mg/dL (0.2-1.0); CREATININE 0.8 mg/dL (0.55-1.02); Calcium 8.5 mg/dL (8.5-10.1); Chloride 106 mmol/L (98-107); Estimated GFR 82.23 (mL/min/1.73m2); Glucose 95 mg/dL (74-106); Magnesium 2.3 mg/dL (1.8-2.4); Potassium 3.6 mmol/L (3.5-5.1); Sodium 143 mmol/L (136-145); Total Protein 6.7 g/dL (6.4-8.2)
[2023-11-13 19:01] LABS: Ammonia < 10 umol/L (11-32)
[2023-11-13] MEDS: Normal Saline 1,000 ML 1000 ML IV (19:03)
[2023-11-13] MEDS: ACETAMINOPHEN 1,000 MG/100 ML BTL 400 MG IVPB (19:04)
[2023-11-13 19:10] LABS: Lipase 107 U/L (16-77); TSH (W/Ref FT4) 3.12 uIU/mL (0.36-3.74)
[2023-11-13 19:11] LABS: C-Reactive Protein < 0.50 mg/dL (<or=0.5)
[2023-11-13 19:16] LABS: Procalcitonin < 0.1 ng/mL
[2023-11-13] MEDS: Omnipaque 350 MG/ML 100 ML BTL 85 ML IJ (19:38)
[2023-11-13] MEDS: Normal Saline - Diluent 50 ML VIAL IJ (19:39)
[2023-11-13 19:40] LABS: ETHANOL BLOOD < 3.0 mg/dL (<10)
--- NOTE | 2023-11-13 20:21 | DI.VRAD_ITS ---
PROCEDURE INFORMATION: Exam: CTA Head With Contrast, Arteriography Exam date and time: 11/13/2023 7:39 PM Age: 63 years old Clinical indication: Other: Headache, chronic gait abnormality TECHNIQUE: Imaging protocol: Computed tomographic angiography of the head with contrast. Exam focused on the arteries. 3D rendering (Not supervised by radiologist): MIP and/or 3D reconstructed images were created by the technologist. Contrast material: OMNIPAQUE; Contrast volume: 85 ml; Contrast route: INTRAVENOUS (IV); COMPARISON: No relevant prior studies available. FINDINGS: ANTERIOR CIRCULATION: Right internal carotid artery: Intracranial segment is patent with no significant stenosis. No aneurysm. Right middle cerebral artery: No occlusion or significant stenosis. No aneurysm. Right anterior cerebral artery: No occlusion or significant stenosis. No aneurysm. Left internal carotid artery: Intracranial segment is patent with no significant stenosis. No aneurysm. Left middle cerebral artery: No occlusion or significant stenosis. No aneurysm. Left anterior cerebral artery: No occlusion or significant stenosis. No aneurysm. POSTERIOR CIRCULATION: Right vertebral artery: No occlusion or significant stenosis. No aneurysm. Left vertebral artery: No occlusion or significant stenosis. No aneurysm. Basilar artery: No occlusion or significant stenosis. No aneurysm. Right posterior cerebral artery: No occlusion or significant stenosis. No aneurysm. Left posterior cerebral artery: No occlusion or significant stenosis. No aneurysm. Brain: No definite mass, mass effect, or midline shift. Cerebral ventricles: No ventriculomegaly. Bones/joints: Unremarkable. No acute fracture. Soft tissues: Unremarkable. IMPRESSION: No large vessel stenosis or occlusion. PROCEDURE INFORMATION: Exam: CTA Neck With Contrast Exam date and time: 11/13/2023 7:39 PM Age: 63 years old Clinical indication: Other: Headache, chronic gait abnormality TECHNIQUE: Imaging protocol: Computed tomographic angiography of the neck with contrast. Exam focused on the cervical segments of the vasculature. 3D rendering (Not supervised by radiologist): MIP and/or 3D reconstructed images were created by the technologist. Contrast material: OMNIPAQUE; Contrast volume: 85 ml; Contrast route: INTRAVENOUS (IV); COMPARISON: CR XR CHEST 2V PA LATERAL 02/08/2023 11:53 AM FINDINGS: Right common carotid artery: No stenosis. No dissection or occlusion. Right internal carotid artery: No stenosis of the extracranial segment. No dissection or occlusion. Right external carotid artery: No occlusion or stenosis of the origin. Left common carotid artery: No stenosis. No dissection or occlusion. Left internal carotid artery: No stenosis of the extracranial segment. No dissection or occlusion. Left external carotid artery: No occlusion or stenosis of the origin. Right vertebral artery: No stenosis. No dissection or occlusion. Left vertebral artery: No stenosis. No dissection or occlusion. Soft tissues: Normal. No significant soft tissue swelling. Bones/joints: No acute fracture. IMPRESSION: No stenosis or occlusion. REFERENCES: NASCET CRITERIA. The degree of stenosis in the cervical segment of the internal carotid artery is based on NASCET criteria. Normal is no stenosis. Mild is less than 50% stenosis. Moderate is 50-69% stenosis. Severe is 70% to 99% stenosis. Total occlusion is no detectable patent lumen. Dictated and Authenticated by: Malcom Pradhan MD. Ordering:GLADYS Kerr MD
[2023-11-13] MEDS: Ketorolac 15 MG/ML VIAL IVP (20:53)
[2023-11-13 21:03] VITALS: BP 170/102; PULSE 74; RESP 18; O2SAT 96
== END 2023-11-13 21:10 | disposition home or self-care (01) ==
PROVIDERS: Emergency Provider Physician Assistant; PCP Physician Assistant
DX: G43.809 Other migraine, not intractable, without status migrainosus (principal)
CPT/HCPCS: 70496; 70498; 80053; 83690; 84145; 85652; 96361; 96374; 96375; 99285; 80320; 82140; 83605; 83735; 84443; 85025; 86140; 99284; J0131; J1200; J1790; J1885; J2919; J3490

== ENCOUNTER 2024-06-25 02:10 | Outpatient (CLI) | payer BC, SELFPAY ==
--- NOTE | 2024-06-25 08:05 | DI.MAMMO_ITS ---
Exam(s) MAMMO SCREENING EXAM: MAMMO SCREENING CLINICAL HISTORY: SCREENING MAMMO Z12.31. TECHNIQUE: Bilateral full field digital CC and MLO mammographic images were obtained with 3D tomosyn thesis and utilizing computer aided detection (CAD). COMPARISON: Prior mammograms were reviewed. FINDINGS: Fibroglandular tissue pattern is again noted be very dense bilaterally, this decreasing the sensitivi ty of the mammogram for finding hidden underlying lesions. There are no obvious new spiculated masses nor new malignant appearing microcalcification groups. Benign-appearing microcalcification group is noted posteriorly in the left breast on the MLO view, un changed from 2022 There is no significant architectural distortion nor skin thickening-retraction. IMPRESSION: Very dense bilateral fibroglandular tissue. No obvious radiographic evidence of malignancy. BI-RADS Category 2 - Benign Findings Breast Density - Category D - Extremely dense Breast density Category C or D implies that the patient has dense breast tissue. Dense breast tissue can make it harder to find cancer on a mammogram. Dense breast tissue is also associated with an incr eased risk of breast cancer. This information about the result of the mammogram report was provided to the patient to raise their awareness. Use this report when you speak with the patient about their risks for breast cancer, which includes their family history. At that time, you may recommend additional screening tests (Ultrasoun d or MRI) as these tests may add significant information. A negative radiographic report should not delay biopsy if a dominant or clinically suspicious mass is present. Up to ten percent of cancers are not identified on mammography. A negative report may reinforce clinical impression. Adenosis and dense breasts may obscure an underlying neoplasm. False positive reports average 6 to 10%. Patient will receive a letter notifying them of these results.
== END 2024-06-25 02:30 ==
PROVIDERS: PCP Physician Assistant; Visit Provider Obstetrics & Gynecology
DX: Z12.31 Encounter for screening mammogram for malignant neoplasm of breast (principal); R92.323 Mammographic fibroglandular density, bilateral breasts; D24.9 Benign neoplasm of unspecified breast
CPT/HCPCS: 77063; 77067

== ENCOUNTER 2025-04-22 04:19 | Outpatient (CLI) | payer MEDICARE, BC, SELFPAY ==
--- NOTE | 2025-04-22 | DI.RAD_ITS ---
Exam(s) XR SHOULDER LT COMPLETE 2+V EXAM: XR SHOULDER LT COMPLETE 2+V CLINICAL HISTORY: PAIN IN JOINTS,M25.50,? OA. TECHNIQUE: 2D digital imaging was performed of the left shoulder. Five images were obtained. AP, Grashey, Y-view and axillary views were obtained. COMPARISON: No exams were available for comparison FINDINGS: BONES: No acute fracture is present. No bony destructive lesion is seen. JOINTS: No dislocation present. There is marked narrowing of the glenohumeral joint. The acromioclavicular joint is well maintained. SOFT TISSUE: Normal. IMPRESSION: Marked osteoarthritis of the glenohumeral joint. DATA REPOSITORY: RADIATION DOSE DELIVERED:
--- NOTE | 2025-04-22 | DI.RAD_ITS ---
Exam(s) XR SHOULDER RT COMPLETE 2+V EXAM: XR SHOULDER RT COMPLETE 2+V CLINICAL HISTORY: PAIN IN JOINT,M25.50,? OA. TECHNIQUE: 2D digital imaging was performed of the right shoulder. Six images were obtained. AP, Grashey, Y-view and axillary views were obtained. COMPARISON: No exams were available for comparison FINDINGS: BONES: No acute fracture is present. No bony destructive lesion is seen. The bones are osteopenic. JOINTS: No dislocation present. There are marked degenerative changes seen at the glenohumeral joint characterized by joint space narrowing and osteophytes. SOFT TISSUE: There are soft tissue calcifications along the anterior proximal humerus likely associated with the biceps tendon. IMPRESSION: 1. Marked degenerative changes seen at the glenohumeral joint. 2. Osteopenia. 3. Probable biceps tendon calcific tendinitis. DATA REPOSITORY: RADIATION DOSE DELIVERED:
== END 2025-04-22 04:39 ==
PROVIDERS: PCP Physician Assistant; Visit Provider Internal Medicine
DX: M19.011 Primary osteoarthritis, right shoulder (principal); M19.012 Primary osteoarthritis, left shoulder
CPT/HCPCS: 73030

== ENCOUNTER 2025-06-29 14:25 | Outpatient (REF) | payer MEDICARE, BC, SELFPAY ==
[2025-06-29 18:52] LABS: HCT 44.4 % (36.0-46.0); HGB 14.6 g/dL (11.2-15.7); MCH 29.4 pg (27.0-33.0); MCHC 32.9 % (32.0-36.0); MCV 90 fL (80-95); MPV 10.2 fL (8.0-11.0); Platelet Count 243 10^3/uL (130-400); RBC 4.96 10^6/uL (3.93-5.22); RDW 13.3 % (11.7-14.6); RDW-SD 43.9 fL; WBC 6.76 10^3/uL (4.4-10.8)
[2025-06-29 18:59] LABS: TSH (W/Ref FT4) 1.42 uIU/mL (0.55-4.78)
[2025-06-29 19:05] LABS: ALT 21 U/L (10-49); AST 28 U/L (<34); Albumin 4.3 g/dL (3.2-5.0); Alkaline Phosphatase 144 U/L (46-116); Anion Gap 7.6 mmol/L (3-11); BUN 18 mg/dL (9-23); Bilirubin, Total 0.60 mg/dL (0.2-1.2); CO2 30.4 mmol/L (20.0-31.0); Calcium 9.3 mg/dL (8.3-10.6); Chloride 105 mmol/L (98-107); Cholesterol 215 mg/dL (<200); Glucose 98 mg/dL (74-106); HDL Cholesterol 72 mg/dL (>40); Potassium 3.9 mmol/L (3.5-5.1); Sodium 143 mmol/L (136-145); Total Protein 6.7 g/dL (5.7-8.2)
[2025-06-29 19:07] LABS: Hemoglobin A1C 5.7 % (<5.7)
== END 2025-06-29 14:26 | disposition home or self-care (01) ==
LOC: NCHCN 14:25
PROVIDERS: PCP Physician Assistant
DX: R63.4 Abnormal weight loss (principal); Z13.1 Encounter for screening for diabetes mellitus; Z13.220 Encounter for screening for lipoid disorders
CPT/HCPCS: 80053; 80061; 85027; 83036; 84443

== ENCOUNTER → 2025-07-20 00:42 | Outpatient (CLI) | payer MEDICARE, SELFPAY ==
--- NOTE | 2025-07-20 | DI.MAMMO_ITS ---
Exam(s) MAMMO SCREENING EXAM: MAMMO SCREENING CLINICAL HISTORY: SCREENING,Z12.31 TECHNIQUE: Bilateral full field digital CC and MLO mammographic images were obtained with 3D tomosynthesis and utilizing computer aided detection (CAD). COMPARISON: Comparison is made with prior examinations. FINDINGS: Masses/Architectural Distortion: No suspicious masses or areas of architectural distortion are present. Microcalcifications: No suspicious pleomorphic-type are seen. Skin Thickening/Nipple Retraction: None. IMPRESSION: 1. No significant interval change with no specific features of malignancy noted. 2. Unless there is more urgent need, screening mammography is recommended, as per [place] [employer] guidelines. BI-RADS Category 1 - Negative Breast Density - Category D - The breast are extremely dense, which lowers the sensitivity of the mammography. Breast density Category C or D implies that the patient has dense breast tissue. Dense breast tissue can make it harder to find cancer on a mammogram. Dense breast tissue is also associated with an increased risk of breast cancer. This information about the result of the mammogram report was provided to the patient to raise their awareness. Use this report when you speak with the patient about their risks for breast cancer, which includes their family history. At that time, you may recommend additional screening tests (Ultrasound or MRI) as these tests may add significant information. A negative radiographic report should not delay biopsy if a dominant or clinically suspicious mass is present. Up to ten percent of cancers are not identified on mammography. A negative report may reinforce clinical impression. Adenosis and dense breasts may obscure an underlying neoplasm. False positive reports average 6 to 10%. Patient will receive a letter notifying them of these results.
== END ==
LOC: DI 00:45
PROVIDERS: PCP Physician Assistant; Visit Provider Obstetrics & Gynecology
DX: Z12.31 Encounter for screening mammogram for malignant neoplasm of breast (principal)
CPT/HCPCS: 77063; 77067